=== PATIENT | female | born 1990 | race African-American/Black ===

== ENCOUNTER 2017-12-14 22:37 | Emergency (ER) | payer BC, OTHER ==
[2017-12-14 23:01] VITALS: BP 116/71; PULSE 67; TEMP 98.7; BMI 23.6
--- NOTE | 2017-12-15 00:25 | PDOC ---
History of Present Illness - General Chief Complaint: Wound Stated Complaint: INFECTED RT INDEX FINGER Time Seen by Provider: 12/14/17 23:12 History Source: Patient Exam Limitations: No Limitations - History of Present Illness Initial Comments: 12/15/17 00:19 Patient is a 27-year-old female with a past medical history here with complaints of right index finger pain and swelling. Patient states that while at work yesterday she sustained a little cut in the cuticle off the right index finger. Today noted that it started swelling and progressively worsened now pain was 9/10, throbbing, which redness to the tip. Denies fever, chills. Able to flex and extend the finger. Tetanus is up-to-date. LMP: 2 weeks ago PMD: Dr. Jane Chirinos PMHX: neg PSOCHX: neg etoh, drug, cig ALL: PCN GENERAL/CONSTITUTIONAL: [No fever or chills. No weakness. No weight change.] HEAD, EYES, EARS, NOSE AND THROAT: [No change in vision. No ear pain or discharge. No sore throat.] CARDIOVASCULAR: [No chest pain or shortness of breath.] RESPIRATORY: [No cough, wheezing, or hemoptysis.] GASTROINTESTINAL: [No nausea, vomiting, diarrhea or constipation. No rectal bleeding.] GENITOURINARY: [No dysuria, frequency, or change in urination.] MUSCULOSKELETAL: [No joint or muscle swelling or pain. No neck or back pain.] SKIN AND BREASTS: [No rash or easy bruising.] NEUROLOGIC: [No headache, vertigo, loss of consciousness, or loss of sensation.] PSYCHIATRIC: [No depression or anxiety.] ENDOCRINE: [No increased thirst. No abnormal weight change.] HEMATOLOGIC/LYMPHATIC: [No anemia, easy bleeding, or history of blood clots.] ALLERGIC/IMMUNOLOGIC: [No hives or skin allergy. No latex allergy.] GENERAL: [The patient is awake, alert, and fully oriented, in no acute distress. ] HEAD: [Normal with no signs of trauma.] EYES: [Pupils equal, round and reactive to light, extraocular movements intact, sclera anicteric, conjunctiva clear.] EXTREMITIES: [Normal range of motion, (+) erythema and swelling around the cuticle. No clubbing or cyanosis. No cords,] NEUROLOGICAL: [Cranial nerves II through XII grossly intact. Normal speech, normal gait.] PSYCH: [Normal mood, normal affect.] SKIN: [no findings except for the right index finger. Warm, Dry, normal turgor , no rashes or lesions noted.] Past History - Past Medical History Allergies/Adverse Reactions: Allergies Allergy/AdvReac Type Severity Reaction Status Date / Time Penicillins Allergy Severe Hives Verified 03/26/13 19:31 Home Medications: Ambulatory Orders Vitamins (Sjr) - 1 tab PO DAILY 03/23/13 Ibuprofen [Motrin -] 600 mg PO TID PRN #60 tablet 03/29/13 Cefuroxime Axetil [Ceftin -] 500 mg PO BID #10 tablet 04/13/13 Docusate Sodium [Colace -] 100 mg PO DAILY #30 capsule 04/13/13 Ferrous Sulfate [Feosol] 325 mg PO TID #90 ud 04/13/13 Sennosides/Docusate Sodium [Pericolace -] 2 each PO HS #60 tablet 04/13/13 Simethicone [Mylicon -] 80 mg PO Q4H PRN #30 tab.chew 04/13/13 metroNIDAZOLE [Flagyl -] 500 mg PO TID #30 tablet 04/13/13 Labetalol HCl [Normodyne -] 100 mg PO BID #1 tablet 04/14/13 Asthma: No Cancer: No Cardiac Disorders: No CVA: No COPD: No Diabetes: No HTN: No Seizures: No Thyroid Disease: No - Suicide/Smoking/Psychosocial Hx Smoking Status: No Smoking History: Never smoked Have you smoked in the past 12 months: No Number of Cigarettes Smoked Daily: 0 Information on smoking cessation initiated: No Hx Alcohol Use: Yes Drug/Substance Use Hx: No Substance Use Type: None Hx Substance Use Treatment: No *Physical Exam - Vital Signs Last Vital Signs Temp Pulse Resp BP Pulse Ox 98.7 F 67 20 116/71 100 12/14/17 22:58 12/14/17 22:58 12/14/17 22:58 12/14/17 22:58 12/14/17 22:58 Medical Decision Making - Medical Decision Making 12/15/17 00:19 Patient is a 27-year-old female with a past medical history here with complaints of right index finger pain and swelling, consistent with paronychia. Will do I&D Bactrim DS, Motrin Packing removal in 24 hours I discussed the physical exam findings, ancillary test results and final diagnoses with the patient. I answered all of the patient's questions. The patient was satisfied with the care received and felt comfortable with the discharge plan and treatment plan. The Patient agrees to follow up with the primary care physician within 24-72 hours. *DC/Admit/Observation/Transfer Diagnosis at time of Disposition: Paronychia - Discharge Dispostion Disposition: HOME Condition at time of disposition: Stable - Referrals - Patient Instructions Printed Discharge Instructions: DI for Paronychia Additional Instructions: Your Discharge Instructions: You must call primary care physician within 24 hours to arrange follow-up. Return to the Emergency Department with any new, persistent or worsening symptoms, for fever, chills, SOB, dizziness or any other concerning changes that may occur. - Post Discharge Activity
[2017-12-15] MEDS ORDERED: IBUPROFEN 600 MG TABLET (FP) PO ONE ×2 (00:27→00:38)
[2017-12-15] MEDS ORDERED: SULFAMETHOXAZOLE/TRIMETHOPRIM 800MG/160MG D.S. TABLET PO ONE (00:27)
[2017-12-15] MEDS ORDERED: SULFAMETHOXAZOLE/TRIMETHOPRIM 800MG/160MG D.S. TABLET ONE (00:38)
[2017-12-15] MEDS ORDERED: IBUPROFEN 400 MG TABLET (FP) PO ONE (00:39)
== END 2017-12-15 01:53 | disposition home or self-care (01) ==
LOC: JER 22:37
PROC: 0H9FXZZ Drainage of Right Hand Skin, External Approach (ICD-10-PCS; principal; 2017-12-14)
DX: L03.011 Cellulitis of right finger (principal); Z88.0 Allergy status to penicillin
CPT/HCPCS: 99282-25

== ENCOUNTER 2018-11-09 09:19 | Day surgery (SDC) | payer OTHER ==
[2018-11-06 12:40] VITALS: BMI 25.6
[~2018-11-09 09:19] MED LIST: BUPIVACAINE HCL/PF 2.5 MG/ML - 30 ML VIAL IJ ONE; ONDANSETRON 4 MG/2 ML VIAL IVPUSH PRN
[2018-11-09] MEDS ORDERED: MIDAZOLAM HCL 2 MG/2 ML SINGLE DOSE VIAL ONE (09:54)
[2018-11-09] MEDS ORDERED: ACETAMINOPHEN INJECTION 100 ML IVPB ONE (09:55)
[2018-11-09] MEDS ORDERED: DEXAMETHASONE SOD PHOSPHATE 4 MG/1 ML VIAL ONE ×2 (09:56)
[2018-11-09] MEDS ORDERED: ONDANSETRON 4 MG/2 ML VIAL ONE (09:56)
[2018-11-09] MEDS ORDERED: CLINDAMYCIN PHOSPHATE 600 MG/4 ML VIAL ONE ×2 (09:56)
[2018-11-09] MEDS ORDERED: PROPOFOL 20 ML ONE ×6 (09:57→11:51)
[2018-11-09] MEDS ORDERED: CLINDAMYCIN PHOSPHATE 900 MG/6 ML VIAL IVPB ONE (10:25)
[2018-11-09] MEDS ORDERED: SEVOFLURANE 250 ML BTL ONE (10:41)
[2018-11-09] MEDS ORDERED: BUPIVACAINE HCL/PF 2.5 MG/ML - 30 ML VIAL IJ ONE (10:53)
[2018-11-09] MEDS ORDERED: ePHEDrine SULFATE 50 MG/1 ML AMPULE ONE (11:03)
[2018-11-09] MEDS ORDERED: SUCCINYLCHOLINE CHLORIDE 200 MG/10 ML SYRINGE ONE (12:15)
[2018-11-09] MEDS ORDERED: DESFLURANE GAS 240 ML BOTTLE IH ONE (13:12)
[2018-11-09] MEDS ORDERED: EPHEDRINE SULFATE/0.9% NACL/PF 50 MG/10 ML SYRINGE NR ONE (13:27)
--- NOTE | 2018-11-09 14:40 | OP ---
Operative Note - Note: Operative Date: 11/09/18 Pre-Operative Diagnosis: Symptomatic Macromastia Operation: Bilateral Breast Reduction Post-Operative Diagnosis: Same as Pre-op Surgeon: Fabio House Vinyl Dipper: Sil Davis Anesthesiologist/CHIEF ENGINEERING DIVISION: Og Hawthorne Anesthesia: General Specimens Removed: Breast Tissue Left: 408gms Right: 424gms Estimated Blood Loss (mls): 50 Operative Report Dictated: Yes
--- NOTE | 2018-11-09 14:43 | OP ---
Operative Note - Note: Operative Date: 11/09/18 Pre-Operative Diagnosis: macromastia, back pain Operation: bilateral breast reduction Post-Operative Diagnosis: Same as Pre-op Surgeon: Fabio House Airbrush Artist Technical: Sil Davis Anesthesiologist/PRESS CLIPPER: Og Hawthorne Anesthesia: General Specimens Removed: bilateral breast tissue Estimated Blood Loss (mls): 50 Drains & Tubes with Location: brenton drain right breast. Brenton drain left breast Fluid Volume Replaced (mls): 1,500 Operative Report Dictated: Yes
--- NOTE | 2018-11-09 14:45 | SURG ---
Surgery Crane Follower Note Crane Follower: Sil Davis PA-C Date of Service: 11/09/18 Diagnosis: symptomatic macromastia Procedure: bilateral breast reduction I was present for the entirety of the operative procedure. For further detail, please refer to operative report.
--- NOTE | 2018-11-09 21:43 | OP ---
DATE OF OPERATION: 11/09/2018 AGE: 28. SEX: Female. PREOPERATIVE DIAGNOSIS: Symptomatic macromastia. POSTOPERATIVE DIAGNOSIS: Symptomatic macromastia. PROCEDURE PERFORMED: Bilateral reduction mammoplasties. SURGEON: Gatito Pettit MD AGRICULTURAL MECHANIC: ADRIANNE Mae ANESTHESIA: General via LMA. PROCEDURE: The patient was on the operating table in supine position, and general anesthesia was administered by the anesthesiologist. The area of the chest and upper abdomen was prepped and draped in usual sterile fashion. The right breast was addressed first. The patient had been marked prior to surgery in the standing position, and these markings were now used as a guide for surgery. A tourniquet was placed at the base of the right breast using a laparotomy pad secured with a Yaneth clamp, and a 42-mm Osprey Spill Control cutter was then used to create a circular uma circumferential to the right nipple-areolar complex. The incision was made using a number 15 scalpel blade, and the remaining incisions were incised as marked. A 7-cm-wide, inferiorly-based pedicle was de-epithelialized, and bipedicle arrangement was used, keeping the pedicle attached superiorly and inferiorly. Excess tissue was removed from the medial and lateral and some from the superior regions, and the total resection on the right side was 424 g. Hemostasis was achieved with the electrocautery. The flaps were rotated and held temporarily in place with 2-0 silk sutures at both anders points. A 1/2-inch Umpire drain was first inserted before closure, and a similar procedure was performed on the left breast. The left breast total resection was 408 g. This provided a visibly even remaining volume which was confirmed by palpation. The closure was then begun with the Brenton drains exiting each inframammary scar laterally. Closure was performed in layered fashion. Deep tissues were closed with number 3-0 and 4-0 Biosyn suture in interrupted buried fashion, and skin was closed with 4-0 V-Loc 90 suture in continuous intradermal fashion. The V-Loc suture was left loose at the end so as not to restrict drainage from the Umpire drain and will be pulled tight when the drain is removed postoperatively. The wounds were further secured with Steri-Strips, and sterile dressings were applied. Good nipple-areolar viability was noted at the conclusion of the procedure. The patient was then awoken from anesthesia without any difficulty and taken from the operating room to the recovery room in satisfactory condition, having tolerated the procedure well. GATITO PETTIT M.D. /[id number]
[2018-11-10] MEDS: oxyCODONE HCL 5 MG TABLET PO PRN ×2 (00:48→04:53)
[2018-11-10 13:04] VITALS: BP 118/64; PULSE 95; TEMP 98.6
--- NOTE | 2018-11-12 13:19 | PATH ---
Surgical Pathology Report Patient Name: RADHA GARCÍA Med. Rec. #: [id number] /Age/Gender: 1990 (Age: 28) / F Account: [id number] Location: [facility] AMBULATORY Taken: 11/09/2018 Received: 11/09/2018 Reported: 11/12/2018 Physicians: Fabio House M.D. Specimen(s) Received A: RIGHT BREAST TISSUE B: LEFT BREAST TISSUE Clinical History Bilateral breast reduction Final Diagnosis A. BREAST TISSUE, RIGHT, REDUCTION: BENIGN BREAST TISSUE. SKIN WITH NO PATHOLOGIC FINDINGS. B. BREAST, TISSUE, LEFT, REDUCTION: BENIGN BREAST TISSUE. SKIN WITH NO PATHOLOGIC FINDINGS. Electronically Signed Sil Redd M.D. Gross Description A. Received in formalin labeled "right breast tissue" is a 379 g, 15.0 x 9.5 x 5.0 cm aggregate of multiple unoriented portions of fibroadipose tissue and rocha, unremarkable skin. Sectioning reveals abundant dense, white, focally firm fibrocystic tissue. Handstitching Machine Armhole Feller sections are submitted in 4 cassettes. B. Received in formalin labeled "left breast tissue," is a 437 g, 15.0 x 13.5 x 5.5 cm aggregate of multiple unoriented portions of fibroadipose tissue and rocha, unremarkable skin. Sectioning reveals abundant dense, white, focally firm fibrocystic tissue. Handstitching Machine Armhole Feller sections are submitted in 4 cassettes. 11/10/2018 saudi11/10/2018
== END 2018-11-10 12:23 | disposition home or self-care (01) ==
LOC: FASU 09:19 → FM/S 20:09 → FASU 11-10 12:23
PROVIDERS: ATTEND Plastic Surgery
PROC: 0HBV0ZZ Excision of Bilateral Breast, Open Approach (ICD-10-PCS; principal; 2018-11-09 10:00)
DX: N62 Hypertrophy of breast (principal)
CPT/HCPCS: 84703; 88305-TC; 94760; J0131